=== PATIENT | male | born 1950 | race Asian ===

== ENCOUNTER 2022-12-11 18:10 | Emergency (ER) | payer OTHER ==
[~2022-12-11] VITALS: Ht 172.7 cm; Wt 63.5 kg
[2022-12-11 18:37] VITALS: BP_SYST 151
[2022-12-11] MEDS ORDERED: DIPHTH,PERTUSS(ACELL),TET VAC 0.5 ML VIAL (Tdap) I.M. ONE (19:15)
[2022-12-11] MEDS ORDERED: BACITRACIN 1 GM OINT TP ONE (19:15)
[2022-12-11] MEDS ORDERED: AMOX-423 PO (20:58)
[2022-12-11] MEDS ORDERED: IBUP-1971 PO (20:58)
[2022-12-11] MEDS ORDERED: IBUPROFEN 800 MG TABLET PO ONE (21:00)
[2022-12-11] MEDS ORDERED: AMOXICILLIN/CLAVULANATE POTASSIUM 500 MG TABLET PO ONE (21:00)
--- NOTE | 2022-12-11 21:25 | NUR ---
Pt alert and orient x 4, VSS, no signs of acute distress. Meds given per MD.
--- NOTE | 2022-12-11 21:30 | NUR ---
Dr Austin evaluating patient in the triage room
--- NOTE | 2022-12-11 21:38 | NUR ---
Patient given written and verbal discharge instructions and verbalizes understanding. ER MD discussed with patient the results and treatment provided. Patient in stable condition. ID arm band removed. IV catheter removed intact and dressing applied, no active bleeding. Rx of amoxicillin, ibuprophen given. Patient educated on pain management and to follow up with PMD. Pain Scale 0. Opportunity for questions provided and answered. Medication side effect fact sheet provided.
[2022-12-11 21:39] VITALS: BP_SYST 111
--- NOTE | 2022-12-11 22:10 | NUR ---
Marnie schmitt in [facility] - 12/11/22 at [email or web address] Austin evaluating patient in the triage room
== END 2022-12-11 21:39 | disposition home or self-care (01) ==
LOC: SED 18:10
DX: S61.432A Puncture wound without foreign body of left hand, initial encounter (principal); I10 Essential (primary) hypertension; Z79.899 Other long term (current) drug therapy; W54.0XXA Bitten by dog, initial encounter; Y93.89 Activity, other specified; Y92.89 Other specified places as the place of occurrence of the external cause; Y99.8 Other external cause status
CPT/HCPCS: 90715; 99283